=== PATIENT | male | born 1945 | race Caucasian/White ===

== ENCOUNTER → 2020-05-29 13:46 | Outpatient (CLI) | payer MEDICARE, OTHER, SELFPAY ==
--- NOTE | 2020-05-29 13:55 | DI.MRI.S_ITS ---
PROCEDURE: MR FEMUR RT WO CON INDICATIONS: Other specified injury of muscle, fascia and tendo TECHNIQUE: Noncontrast coronal and sagittal T1 spin echo and STIR; axial T1 spin echo and T2 fast spin echo with fat saturation through the right thigh. COMPARISON: None. FINDINGS: Image quality: Excellent. Bones: The visualized bone marrow demonstrates normal signal on all sequences. The overlying cortex appears intact. No fractures lines or intra-osseous lesions. Soft tissues: There is full-thickness rupture involving common tendon origin of long head of biceps femoris and semitendinosis at its insertion on ischial tuberosity with up to 2.9 cm distal retraction of torn tendon fibers and extensive surrounding edema and fluid. Tendinosis and low-grade partial-thickness tear involving semimembranosus tendon origin at ischial tuberosity is also seen. There is fluid seen extending to musculotendinous junction of long head of biceps femora. With small amount of fluid extending along the tendon sheath. Fluid along the tendon sheath of semitendinosis is also seen. No other muscle or tendon signal abnormality. IMPRESSION: 1. Full-thickness rupture involving common tendon origin of long head of biceps femoris and semitendinosis at its insertion on the ischial tuberosity with up to 2.9 cm distal retraction of torn tendon fibers with surrounding fluid and edema extending to the musculotendinous junction. Fluid is also seen extending along tendon sheath of biceps femoris and semitendinosis. 2. Tendinosis and low-grade partial-thickness tear involving semimembranosus tendon origin at ischial tuberosity. 3. No marrow edema. No fracture or dislocation. No evidence of avascular necrosis of femoral head. Dictated by: Erick Diop M.D. on 05/29/2020 at 15:33 Approved by: Erick Diop M.D. on 05/29/2020 at 15:39
== END ==
PROVIDERS: Family Provider Family Medicine; PCP Family Medicine; Referring Provider Orthopaedic Surgery Adult Reconstructive Orthopaedic Surgery; Visit Provider Orthopaedic Surgery Adult Reconstructive Orthopaedic Surgery
DX: S76.391A Other specified injury of muscle, fascia and tendon of the posterior muscle group at thigh level, right thigh, initial encounter (principal); S76.811A Strain of other specified muscles, fascia and tendons at thigh level, right thigh, initial encounter; X58.XXXA Exposure to other specified factors, initial encounter
CPT/HCPCS: 73718